=== PATIENT | male | born 1990 | race Caucasian/White ===

== ENCOUNTER 2018-03-20 09:02 | Emergency (ER) | payer BC ==
[2018-03-20] MEDS: ALBUTEROL 0.5% (NEB) 2.5 MG/0.5 ML AMP INH (09:32)
[2018-03-20] MEDS: DEXAMETHASONE 10 MG/ML 1 ML INJ IM (09:34)
== END 2018-03-20 10:58 | disposition home or self-care (01) ==
LOC: FTE 09:02
DX: J45.901 Unspecified asthma with (acute) exacerbation (principal)
CPT/HCPCS: 94644; 94664; 96372; 99284-25

== ENCOUNTER → 2018-07-10 | Emergency (ER) | payer BC | END | disposition home or self-care (01) | LOC: FTE 00:31 | DX: K21.9 Gastro-esophageal reflux disease without esophagitis (principal); J45.909 Unspecified asthma, uncomplicated | CPT/HCPCS: 71046; 93005; 99284-25 ==